=== PATIENT | male | born 1990 | race Caucasian/White ===

== ENCOUNTER 2024-04-10 12:51 | Emergency (ER) | payer OTHER, SELFPAY ==
[2024-04-10 12:53] VITALS: BP 138/95; PULSE 75; RESP 18; TEMP 36.8; O2SAT 98; BMI 31.9
--- NOTE | 2024-04-10 13:12 | ED.PSYCH ---
HPI - Psych General Chief Complaint: Psychiatric Symptoms Stated Complaint: SI Time Seen by Provider: 04/10/24 13:05 Source: patient, RN notes reviewed and old records reviewed Mode of arrival: Ambulatory Limitations: no limitations History of Present Illness HPI Narrative: 33-year-old male history of depression who was sent for evaluation. Patient states a month ago his best friend committed suicide and had another acquaintance recently. He has had increasing thoughts of self-harm and some SI thoughts but no plan or intent. He states they have started to improve a little bit the past month after starting an anti depressant. Has cut himself in the last 1-1/2 weeks. Has not caught himself since then. Has had thoughts but no intent to harm self. He does not have a specific plan. He is able to contract for safety. Patient was at an appointment today with primary care and referred here. He was started on escitalopram a month ago which he states has been helpful. Patient has been seeking therapist but was told that he has to pay a 2000 dollar deductible before they will cover it. He has several friends who has been helpful. Patient states he feels safe today, states he does not have any intent to harm himself. States his goal is to seek help prevent himself from harming himself in the future. He uses marijuana occasionally but no tobacco, rare alcohol, no recreational drugs otherwise. Patient saw his primary care Antonio Ramirez today. Was told they would like for him to set up a follow up appointment but have not done that yet. Review of Systems Review of Systems ROS Unobtainable: All systems reviewed & are unremarkable except as noted in HPI and below Patient History Social History Smoking Status: Never smoker Smoking Status: Never smoker alcohol intake frequency: other Substance Use Type: marijuana Exam Narrative Exam Narrative: GENERAL: Alert and oriented x three, well-appearing male in mild distress. HEENT: Head normocephalic, atraumatic, EOMI, pupils reactive, face symmetric, moist mucous membranes NECK: Supple, full range of motion CARDIOVASCULAR: Regular rate and rhythm without murmurs, rubs or gallops. RESPIRATORY: Breath sounds equal bilaterally, no wheezes rales or rhonchi. ABDOMEN: Soft, nontender. Normoactive bowel sounds all 4 quadrants. No guarding or rebound, rigidity, no mass : No CVA tenderness EXTREMITIES: Normal range of motion, no clubbing or edema. Neurovascularly intact NEUROLOGICAL: Cranial nerves II through XII grossly intact. Moving all extremities SKIN: Warm, dry, no petechiae, no rashes or lesions. PSYCH: Suicidal thoughts, no intent. No homicidal ideation. No hallucinations. Initial Vital Signs Initial Vital Signs: Vital Signs Temperature 98.2 F 04/10/24 12:53 Pulse Rate 75 04/10/24 12:53 Respiratory Rate 18 04/10/24 12:53 Blood Pressure 138/95 H 04/10/24 12:53 Pulse Oximetry 98 04/10/24 12:53 Oxygen Delivery Method Room Air 04/10/24 12:53 Course Orders Ordered: ED Orders 04/10/24 13:23 Consult to COMMUNITY HE[facility] NAVIGATOR - Aged Or Disabled Carer Stat Vital Signs Vital signs: Vital Signs - 8 hr 04/10/24 12:53 Temperature 98.2 F Pulse Rate 75 Respiratory Rate 18 Blood Pressure 138/95 H Pulse Oximetry 98 Oxygen Delivery Method Room Air MDM - Psych MDM Narrative Medical decision making narrative: 33-year-old male with history of longstanding depression that has been untreated patient recently started seeking treatment as his good friend killed themselves about a month ago, the patient lost another acquaintance as well. Patient has been on escitalopram for about past month. He states his thoughts has been little bit less frequent felt less impulsive. Did put a knife to his throat about a week ago but has not cut himself or done that since. Patient has been actively seeking care and was at a follow up appointment today with his primary care. He is also even tried to seek outpatient therapy or counseling but has had some barriers with his health insurance. He is able to contract for safety. Describes multiple friends he can reach out to for help that has been supportive. He is interested in a call back from [facility] for a check in tomorrow. Patient was given multiple resources for counseling, also set up for a follow up appointment on April 24 at 10:30 a.m. with his primary care. Discharge Plan Departure Patient Disposition: Home Clinical Impression: Suicidal ideation Instructions: DI for Suicidal Ideation-Adult Activity Restrictions/Additional Instructions: I hope you continue to feel improved. You can return at any time if you need assistance or help with resources or keeping herself safe. You has a follow up appointment scheduled for April 24 at 10:30 a.m. with your primary care Carlie Ramirez. Please continue your home medications as prescribed. These medications or slow to act can be adjusted over time as needed. If you're feeling suicidal or having suicidal thoughts, contact the suicide hotline (this is also an option for self-referral for counseling and resources through [facility]): . Please return or call 911 if you are having worsening thoughts of harming yourself, feel that you are unable to keep herself safe, thoughts of harming others, hallucinations or any other new or concerning changes. Stand Alone Forms: Patient Portal/API
--- NOTE | 2024-04-10 14:04 | CM.SWNOTE ---
ED SIDE LASTER Assessment Note Patient is 33 y/o male who is recommended to come in by PCP ANTONIETTA Vazquez from [facility] due to patient's reported recent SI, thoughts of self harm and recent self harm a week ago. Patient endorses one of his best friends by suicide a month ago and another acquaintance friend by suicide recently as well. Patient endorses in the last month he has engaged in self harm to cope and he has had passive thoughts of SI but denies intent to act on it. Patient endorses he has good supports from several friends and his mother. Patient endorses he does not want to and he has a lot to live for. PCP just put patient on Escitapram a month ago and his current dose is at 10mg. Patient states he has noticed that the medication is starting to work and starting to feel better. Patient denies current SI, patient shows both legs where he cut self a week ago with intent to harm self to assist in dealing with his emotions. Patient endorses he has not engaged in self harm since then. Patient states a week ago he had passive thoughts of SI with thoughts of using knife to cut neck to kill self, patient denies current plans or intent to kill self. Patient endorses daily marijuana use and occasional ETOH use, patient denies any other substances. SIDE LASTER discusses inpatient hospitalization and outpatient. Patient denies interest in inpatient at this time and denies hx of hospitalization. Patient states he may be interested in this in the future if his symptoms worsen but he is hopeful he will not needed. Patient endorses the biggest barrier to outpatient services is his insurance deductible and concern that he does not have the funds to pay for that. Patient contracts for safety, patient states he can talk with several friends and states he has plans to go to work and exercise today, patient endorses preference to d/c to home to go to work today. Patient states he lives with his mother and their pets and has good support from his mother. SIDE LASTER provides patient with crisis contact information, [facility] information, and list of providers that accept his insurance. SIDE LASTER discusses that some MH providers can identify payment plans with payment and SIDE LASTER recommends calling his insurance company for more information when he is feeling up to it. SIDE LASTER calls patient's PCP office and schedules ED f/u for 04/24/24 at 10:30 AM, it is reported that patient rx is filled and at his pharmacy. SIDE LASTER informs patient of this who indicates agreement and understanding. Plan: patient to d/c to home upon medical clearance, patient to f/u with PCP, patient to f/u with crisis contacts provided and seek MH provider. Celena Rivera, WAREHOUSE RECEIVING CLERK
== END 2024-04-10 14:05 | disposition home or self-care (01) ==
PROVIDERS: Emergency Provider Emergency Medicine; PCP Registered Nurse
DX: R45.851 Suicidal ideations (principal)
CPT/HCPCS: 99283